=== PATIENT | male | born 1975 | race Caucasian/White ===

== ENCOUNTER 2018-05-10 21:06 | Emergency (ER) | payer SELFPAY ==
[~2018-05-10] VITALS: Ht 193 cm; Wt 185.0 kg
[~2018-05-10 21:06] MED LIST: ASPI-496 PO; ATEN50TA41 PO
[2018-05-10] MEDS ORDERED: ADENOSINE 6 MG/2 ML ONE ×2 (21:20→21:25)
[2018-05-10] MEDS ORDERED: METOPROLOL 1 MG/ML, 5ML ONE (21:25)
[2018-05-10] MEDS ORDERED: ADENOSINE 6 MG/2 ML IVPush ONE ×2 (21:30→22:00)
[2018-05-10] MEDS ORDERED: METOPROLOL 1 MG/ML, 5ML IVPush ONE ×2 (21:30→22:00)
[2018-05-10] MEDS ORDERED: SODIUM CHLORIDE FLUSH 10ML SYR IVF ONE (21:30)
[2018-05-10 21:41] LABS: BASOPHILS # (AUTO) 0.17 x10^3/uL (0-0.1); BASOPHILS % (AUTO) 1 % (0-1); EOSINOPHILS # (AUTO) 0.14 x10^3/uL (0-0.4); EOSINOPHILS % (AUTO) 1 % (1-7); LYMPHOCYTES # (AUTO) 4.25 x10^3/uL (1-3.4); LYMPHOCYTES % (AUTO) 33 % (22-44); MD NO; MEAN CORPUSCULAR HEMOGLOBIN 29.3 pg (27.5-34.5); MEAN CORPUSCULAR HGB CONC 34.2 g/dL (33.2-36.2); MEAN CORPUSCULAR VOLUME 85.7 fL (81-97); MEAN PLATELET VOLUME 10.4 fL (7.4-10.4); MONOCYTES # (AUTO) 0.89 x10^3/uL (0.2-0.8); MONOCYTES % (AUTO) 7 % (2-9); NEUTROPHILS # (AUTO) 7.39 x10^3/uL (1.8-6.8); NEUTROPHILS % (AUTO) 58 % (42-75); PLATELET COUNT 210 x10^3/uL (130-400); RED CELL DISTRIBUTION WIDTH 14.1 % (9.4-14.8)
[2018-05-10] MEDS ORDERED: PROPOFOL 10 MG/ML, 20ML ONE (21:49)
[2018-05-10 21:52] LABS: ALANINE AMINOTRANSFERASE 46 U/L (12-78); ALBUMIN 3.6 g/dL (3.4-5.0); ANION GAP 12 mmol/L (5-15); CALCIUM 8.8 mg/dL (8.5-10.1); CHLORIDE 106 mmol/L (98-107); CREATININE 1.24 mg/dL (0.7-1.3)
[2018-05-10 21:57] LABS: ALKALINE PHOSPHATASE 70 U/L (45-117); TOTAL PROTEIN 7.3 g/dL (6.4-8.2); TROPONIN I < 0.015 ng/mL (0.000-0.045)
[2018-05-10] MEDS ORDERED: PROPOFOL 10 MG/ML, 20ML IVPush ONE (22:00)
[2018-05-10] MEDS ORDERED: ATENOLOL 50 MG TABLET PO ONE (23:00)
[2018-05-10 23:26] VITALS: BP 125/89
== END 2018-05-10 23:39 | disposition home or self-care (01) ==
LOC: ED 22:50
DX: I47.1 Supraventricular tachycardia (principal); I48.91 Unspecified atrial fibrillation
CPT/HCPCS: 36415; 80053; 83735; 84484; 85025; 92960; 93005; 99291; J0153

== ENCOUNTER 2019-05-07 09:01 | Observation (INO) | payer OTHER ==
[~2019-05-07] VITALS: Ht 193 cm; Wt 205.0 kg
--- NOTE | 2019-05-07 09:19 | NUR ---
pt biba for afib with rvr, hx same. report received from EMS. pt states he felt onset of chest tightness and palpitations at 0830 this am. 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 EKG taken by this RN on arrival, reviewed by EDMD. pt attached to all monitors. pt is afib rate 110-130's on in store banker, no ectopy noted. pt a&o, resps even and unlabored, speaking in full sentences without difficulty. at bedside. med student at bedside at this time.
[2019-05-07] MEDS ORDERED: SODIUM CHLORIDE FLUSH 10ML SYR IVF ONE (09:30)
--- NOTE | 2019-05-07 09:36 | NUR ---
PT TO XRAY AT THIS TIME.
[2019-05-07 09:39] LABS: BASOPHILS # (AUTO) 0.08 x10^3/uL (0-0.1); BASOPHILS % (AUTO) 1 % (0-1); EOSINOPHILS # (AUTO) 0.18 x10^3/uL (0-0.4); EOSINOPHILS % (AUTO) 3 % (1-7); LYMPHOCYTES # (AUTO) 2.01 x10^3/uL (1-3.4); LYMPHOCYTES % (AUTO) 28 % (22-44); MD NO; MEAN CORPUSCULAR HEMOGLOBIN 29.6 pg (27.5-34.5); MEAN CORPUSCULAR HGB CONC 33.6 g/dL (33.2-36.2); MEAN CORPUSCULAR VOLUME 88.2 fL (81-97); MEAN PLATELET VOLUME 10.6 fL (7.4-10.4); MONOCYTES % (AUTO) 7 % (2-9); NEUTROPHILS # (AUTO) 4.42 x10^3/uL (1.8-6.8); NEUTROPHILS % (AUTO) 61 % (42-75); PLATELET COUNT 168 x10^3/uL (130-400); RED BLOOD COUNT 5.22 x10^6/uL (4.38-5.82); RED CELL DISTRIBUTION WIDTH 13.6 % (9.4-14.8)
[2019-05-07] MEDS ORDERED: PROPOFOL 10 MG/ML, 20ML ONE (09:41)
[2019-05-07 09:52] LABS: ALANINE AMINOTRANSFERASE 41 U/L (12-78); ALBUMIN 3.4 g/dL (3.4-5.0); CALCIUM 8.5 mg/dL (8.5-10.1); CREATININE 1.03 mg/dL (0.7-1.3)
[2019-05-07 09:56] LABS: ALKALINE PHOSPHATASE 70 U/L (45-117); ANION GAP 7 mmol/L (5-15); BILIRUBIN,TOTAL 0.8 mg/dL (0.2-1.0); CHLORIDE 111 mmol/L (98-107); TOTAL PROTEIN 7.1 g/dL (6.4-8.2); TROPONIN I < 0.015 ng/mL (0.000-0.045)
[2019-05-07 09:57] LABS: PROTHROMBIN TIME 10.5 Seconds (9.6-11.5)
[2019-05-07] MEDS ORDERED: PROPOFOL 10 MG/ML, 20ML IVPush ONE (10:00)
--- NOTE | 2019-05-07 10:31 | NUR ---
consent signed by pt and BESSY Avery for cardioversion with procedural sedation. pt a&o, resps even and unlabored, all monitors in place. pt remains in afib rate 110s-130s with no ectopy. pt shaved and prepped for cardioversion. crash cart at bedside. awaiting MD and cardioversion at this time.
--- NOTE | 2019-05-07 10:50 | NUR ---
cardioversion with procedural sedation completed by BESSY Avery, med student and this RN. procedure start time was 1040, end time was 10:47. pt received a total of 100mg propofol at 1040, and 50 mg propofol at 1046 from BESSY Avery. Pt was shocked twice, at 200J by . Pt remains in afib at rate 130's at this time with no ectopy. Pt tolerated procedure with no complications. Pt is drowsy, awakens to voice and is oriented x 4. resps even and unlabored. no n/v. all monitors remain in place, etco2 is 36 at this time. pt placed on oxygen at 2L via NC prior to procedure, spo2 98% on 2L at this time. pt updated with POC. see paper charting for intraprocedure sedation score and vital signs.
[2019-05-07] MEDS ORDERED: DILTIAZEM 5 MG/ML, 5ML IV ONE (11:00)
[2019-05-07] MEDS ORDERED: RIVAROXABAN 20 MG TABLET PO ONE (11:00)
[2019-05-07] MEDS ORDERED: DILTIAZEM 125 MG in SODIUM CHLORIDE 0.9% 100 ML IV SCH ×2 (11:00→15:30)
[2019-05-07] MEDS ORDERED: DILTIAZEM 5 MG/ML, 5ML ONE (11:07)
--- NOTE | 2019-05-07 11:21 | NUR ---
pt became hypotensive briefly s/p procedural sedation (bp 84/32). EDMD Avery notified. pt remained consious, a&ox4 and speaking in full sentences without difficulty. order received for 1L NS bolus which was infused. pt's bp promptly increased to 116/53 after NS bolus initiated and head of bed flattened. MD Avery was at bedside to reassess pt and update pt and with POC. MD arzola'ra RN to admin diltiazem 20 mg IV push. integrative medicine physician slowly over 10 min. pt medicated per emar and tolerated well. pt amenable to admission.
[2019-05-07] MEDS ORDERED: SODIUM CHLORIDE 0.9%, 500ML IVBOLUS ONE (11:30)
--- NOTE | 2019-05-07 11:30 | NUR ---
pt is fully awake, alert and oriented x 4. repss even and unlabored, tolerating room air with spo2 96%. dilt gtt req from pharmacy, pt is afib rate 70s-80s at this time. pt denies hx bleeding disorders however states he has the occaisional bleeding hemmorhoid, last 1 year ago, which did not require medical intervention. MD Avery notified, MD arzola'ra RN to admin xaralto.
[2019-05-07] MEDS ORDERED: RIVAROXABAN 20 MG TABLET ONE (11:38)
--- NOTE | 2019-05-07 11:59 | NUR ---
HOSPITALIST AT BEDSIDE FOR ASSESSMENT. REQUESTS HOLD OF DILTIAZEM DRIP AT THIS TIME, PLAN TO GIVE PO MEDS TO MANAGE. PT RECLINED IN BED RESPIRATIONS EVEN AND UNLABORED. AT BEDSIDE. SIDE RAILS UP, CALL LIGHT IN REACH.
[2019-05-07] MEDS ORDERED: GABAPENTIN 300 MG CAPSULE PO PRN (12:30)
[2019-05-07] MEDS ORDERED: NITROGLYCERIN 0.4 MG/SPRAY SL PRN (12:30)
[2019-05-07] MEDS ORDERED: METOPROLOL TARTRATE 50 MG TABLET PO SCH (12:30)
[2019-05-07] MEDS ORDERED: morphine SULFATE 10 MG/ML, 1ML IV PRN (12:30)
[2019-05-07] MEDS ORDERED: NITROGLYCERIN 0.4 MG BOTTLE (25 TABS) SL PRN (12:30)
[2019-05-07] MEDS ORDERED: ACETAMINOPHEN 325 MG TABLET PO PRN (12:30)
[2019-05-07] MEDS ORDERED: morphine SULFATE 10 MG/ML, 1ML IVPush PRN (12:30)
[2019-05-07] MEDS ORDERED: METOPROLOL TARTRATE 50 MG TABLET ONE (12:38)
--- NOTE | 2019-05-07 12:51 | NUR ---
PT A&O, RESPS EVEN AND UNLABORED, AFIB RATE 70'S ON APPAREL RENTAL CLERK. PT DENIES ANY NEEDS AT THIS TIME, AWAITING TRANSPORT UP TO CARDIAC TELE.
[2019-05-07 13:25] VITALS: BP 134/98
[2019-05-07] MEDS: DILTIAZEM CD 180 MG CAP.ER.24H PO SCH (16:03)
[2019-05-07] MEDS ORDERED: DILTIAZEM 125 MG in SODIUM CHLORIDE 0.9% 100 ML IV PRN (18:00)
[2019-05-07 20:19] LABS: TROPONIN I < 0.015 ng/mL (0.000-0.045)
[2019-05-07] MEDS: SODIUM CHLORIDE FLUSH 10ML SYR IVF SCH (20:31)
[2019-05-08 00:39] VITALS: BP 117/79
[2019-05-08 01:17] LABS: TROPONIN I < 0.015 ng/mL (0.000-0.045)
[2019-05-08] MEDS ORDERED: ASPIRIN 325 MG TABLET EC PO SCH (06:00)
[2019-05-08 06:20] LABS: CHOL/HDL RATIO 4.9; LDL/HDL RATIO 3.2 (0.5-3.0)
[2019-05-08 08:00] VITALS: BP 127/85
[2019-05-08] MEDS: SODIUM CHLORIDE FLUSH 10ML SYR IVF SCH (08:06)
[2019-05-08] MEDS: DILTIAZEM CD 180 MG CAP.ER.24H PO SCH (08:06)
[2019-05-08] MEDS ORDERED: ASPI-650 PO (12:42)
[2019-05-08] MEDS ORDERED: DILT30TA33 PO (12:42)
[2019-05-08] MEDS ORDERED: DILT180C53 PO (12:42)
== END 2019-05-08 14:40 | disposition home or self-care (01) ==
LOC: ED 11:30 → EDIP 11:35 → INTOOBSV 11:35 → 5SO 13:24 → DCLOUNGE 05-08 14:35
PROVIDERS: ADMIT Family Medicine; ATTEND Internal Medicine
DX: I48.20 Chronic atrial fibrillation, unspecified (principal); I48.0 Paroxysmal atrial fibrillation; D68.59 Other primary thrombophilia; I11.9 Hypertensive heart disease without heart failure; E03.9 Hypothyroidism, unspecified; E66.01 Morbid (severe) obesity due to excess calories; I48.92 Unspecified atrial flutter; Z79.82 Long term (current) use of aspirin; Z79.01 Long term (current) use of anticoagulants
CPT/HCPCS: 0399T; 36415; 71045; 80053; 80061; 83735; 83880; 84443; 84484; 85025; 85610; 93005; 93306; 96374; 96375; 99291; G0378; J2704; J7040

== ENCOUNTER 2019-07-16 19:15 | Emergency (ER) | payer SELFPAY ==
[~2019-07-16] VITALS: Ht 193 cm; Wt 105.0 kg
[~2019-07-16 19:15] MED LIST changes: +ASPI-650 PO; +DILT180C53 PO; +DILT30TA33 PO
--- NOTE | 2019-07-16 19:29 | NUR ---
[employer] pads replaced w/ pads compatible to our zolls upon admit to ed for safety.
--- NOTE | 2019-07-16 19:29 | NUR ---
Patient BIB [facility] post SVT conversion. Patient has a hx of SVT. Today he experienced sudden onset CP and palpitations. Per home pulse ox, patient's HR was 205. Upon EMS arrival, patient in SVT at rate of 220; no radia pulses; BP 70s systolic. Patient received 6mg/12mg Adenosine which did not convert rhythm. Patient received Ketamine and was cardioverted three times and successfully converted to sinus tach at rate of 130; BP improved to 140s systolic. Patient takes diltiazem at home which he is compliant with. He has experienced SVT in the past x3, the last time being in April where he was cardioverted. Currently patient is in NAD. Respirations even and unlabored.
[2019-07-16 19:55] LABS: BASOPHILS # (AUTO) 0.08 x10^3/uL (0-0.1); BASOPHILS % (AUTO) 1 % (0-1); EOSINOPHILS # (AUTO) 0.17 x10^3/uL (0-0.4); EOSINOPHILS % (AUTO) 2 % (1-7); LYMPHOCYTES # (AUTO) 1.96 x10^3/uL (1-3.4); LYMPHOCYTES % (AUTO) 26 % (22-44); MD NO; MEAN CORPUSCULAR HGB CONC 33.4 g/dL (33.2-36.2); MEAN CORPUSCULAR VOLUME 86.6 fL (81-97); MEAN PLATELET VOLUME 10.5 fL (7.4-10.4); MONOCYTES # (AUTO) 0.49 x10^3/uL (0.2-0.8); MONOCYTES % (AUTO) 6 % (2-9); NEUTROPHILS # (AUTO) 4.99 x10^3/uL (1.8-6.8); NEUTROPHILS % (AUTO) 65 % (42-75); PLATELET COUNT 179 x10^3/uL (130-400); RED BLOOD COUNT 5.46 x10^6/uL (4.38-5.82); RED CELL DISTRIBUTION WIDTH 13.4 % (9.4-14.8)
[2019-07-16] MEDS ORDERED: SODIUM CHLORIDE FLUSH 10ML SYR IVF ONE (20:00)
[2019-07-16 20:02] LABS: ALBUMIN 3.7 g/dL (3.4-5.0); ANION GAP 8 mmol/L (5-15); CALCIUM 8.7 mg/dL (8.5-10.1); CHLORIDE 110 mmol/L (98-107); CREATININE 1.05 mg/dL (0.7-1.3)
[2019-07-16 20:06] LABS: T4 (THYROXINE) 10.2 mcg/dL (4.5-12.1); TROPONIN I 0.016 ng/mL (0.000-0.045)
--- NOTE | 2019-07-16 20:14 | NUR ---
Pt sustaining hr 90-110's. aware. Denies any discomort or physical symptoms at this time. WCTM.
[2019-07-16 21:23] VITALS: BP 133/91
--- NOTE | 2019-07-16 21:36 | NUR ---
Discharge instructions given. All questions and concerns addressed. Patient ambulatory with a steady gait. Belongings with patient.
== END 2019-07-16 21:39 | disposition home or self-care (01) ==
LOC: ED 21:30
DX: I47.1 Supraventricular tachycardia (principal); I48.91 Unspecified atrial fibrillation
CPT/HCPCS: 36415; 71045; 80048; 82040; 83880; 84436; 84443; 84484; 85025; 93005; 99284

== ENCOUNTER 2019-08-11 13:05 | Emergency (ER) | payer SELFPAY ==
[~2019-08-11] VITALS: Ht 182.9 cm; Wt 193.8 kg
--- NOTE | 2019-08-11 13:26 | NUR ---
BREAK RN: PT REPORTS PALPITATIONS. EKG DONE. INDEPENDENT SALES REPRESENTATIVE ON. SINUS TACH NOTED. VS STABLE. CALL LIGHT IN PLACE. WILL CONTINUE TO MONITOR WHILE PRIMARY RN IS ON BREAK.
--- NOTE | 2019-08-11 13:39 | NUR ---
REPORT GIVEN TO LINDA PERALTA
[2019-08-11] MEDS ORDERED: ASPIRIN 81 MG TABLET CHEW ONE (13:47)
[2019-08-11 13:54] LABS: ALBUMIN 4.2 g/dL (3.4-5.0); ANION GAP 8 mmol/L (5-15); CALCIUM 9.6 mg/dL (8.5-10.1); CHLORIDE 111 mmol/L (98-107); CREATININE 0.99 mg/dL (0.7-1.3)
[2019-08-11] MEDS ORDERED: ASPIRIN 81 MG TABLET CHEW PO ONE (14:00)
--- NOTE | 2019-08-11 14:32 | NUR ---
PT RESTING IN BED. NO COMPLAINTS AT THIS TIME. A BEDSIDE.
[2019-08-11 15:05] LABS: BASOPHILS # (AUTO) 0.04 x10^3/uL (0-0.1); BASOPHILS % (AUTO) 1 % (0-1); EOSINOPHILS # (AUTO) 0.18 x10^3/uL (0-0.4); EOSINOPHILS % (AUTO) 3 % (1-7); LYMPHOCYTES # (AUTO) 2.09 x10^3/uL (1-3.4); LYMPHOCYTES % (AUTO) 29 % (22-44); MD SCAN; MEAN CORPUSCULAR HEMOGLOBIN 29.6 pg (27.5-34.5); MEAN CORPUSCULAR HGB CONC 34.3 g/dL (33.2-36.2); MEAN CORPUSCULAR VOLUME 86.4 fL (81-97); MEAN PLATELET VOLUME 11.9 fL (7.4-10.4); MONOCYTES # (AUTO) 0.53 x10^3/uL (0.2-0.8); MONOCYTES % (AUTO) 7 % (2-9); NEUTROPHILS # (AUTO) 4.41 x10^3/uL (1.8-6.8); NEUTROPHILS % (AUTO) 61 % (42-75); PLATELET COUNT 174 x10^3/uL (130-400); RED BLOOD COUNT 5.49 x10^6/uL (4.38-5.82); RED CELL DISTRIBUTION WIDTH 14.1 % (9.4-14.8)
[2019-08-11] MEDS ORDERED: POTASSIUM CHLORIDE 20 MEQ TAB.ER.PRT ONE (15:25)
[2019-08-11] MEDS ORDERED: POTASSIUM CHLORIDE 20 MEQ TAB.ER.PRT PO ONE (15:30)
[2019-08-11 15:31] VITALS: BP 120/75
--- NOTE | 2019-08-11 15:42 | NUR ---
DISCHARGE INSTRUCTIONS REVIEWED
== END 2019-08-11 15:44 | disposition home or self-care (01) ==
LOC: ED 14:40
DX: E87.6 Hypokalemia (principal); R00.0 Tachycardia, unspecified; R00.2 Palpitations; I48.91 Unspecified atrial fibrillation
CPT/HCPCS: 36415; 80048; 82040; 85025; 93005; 99284

== ENCOUNTER 2019-09-03 21:27 | Emergency (ER) | payer OTHER ==
[~2019-09-03] VITALS: Ht 182.9 cm; Wt 192.3 kg
[2019-09-03] MEDS ORDERED: PROPOFOL 10 MG/ML, 20ML ONE ×2 (21:46→21:55)
[2019-09-03] MEDS ORDERED: FENTANYL PF 100 MCG/2ML ONE (21:46)
--- NOTE | 2019-09-03 21:55 | NUR ---
pT IN AFIB RVR, TO TRAUMA ROOM, PLACED ON PADS. IV ACCESS ESTABLISHED. CONSENT ACQUIRED AND PT MEDICATED PER EMAR.
--- NOTE | 2019-09-03 21:56 | NUR ---
PT READY FOR SYNCHRONIZXED CARDIOVERSION
[2019-09-03] MEDS ORDERED: FENTANYL PF 100 MCG/2ML IVPush PRN (22:00)
[2019-09-03] MEDS ORDERED: SODIUM CHLORIDE 0.9% 1,000ML IVBOLUS ONE (22:00)
[2019-09-03] MEDS ORDERED: PROPOFOL 10 MG/ML, 20ML IVPush ONE (22:00)
--- NOTE | 2019-09-03 22:02 | NUR ---
PROCEDURE COMPLETED, PT RATE CONTROLLED AND PT AWAKE AND ALERT.
--- NOTE | 2019-09-03 22:05 | NUR ---
LATE ENTRY: PT ARRIVED TO ED AFTER INTERCOURSE AND STARTED TO HAVE CHEST PALPITATIONS AND FELT UNCOMFROTABLE. PT REPORTS MODERATE CHEST PAIN. PT DENIES TRAUMA. PT IS A/O X4 WITH GCS 15. PTS VITAL NORMAL NOW AND RETURNED TO BASELINE AND HAS NO SYMPTOMS.
[2019-09-03 22:21] LABS: ALBUMIN 4.4 g/dL (3.4-5.0); ANION GAP 11 mmol/L (5-15); CALCIUM 10.3 mg/dL (8.5-10.1); CHLORIDE 106 mmol/L (98-107); CREATININE 1.06 mg/dL (0.7-1.3)
--- NOTE | 2019-09-03 22:30 | NUR ---
Pt alert and no distress. VSS
[2019-09-03 22:31] LABS: MEAN CORPUSCULAR HEMOGLOBIN 28.9 pg (27.5-34.5); MEAN CORPUSCULAR HGB CONC 33.2 g/dL (33.2-36.2); MEAN CORPUSCULAR VOLUME 86.9 fL (81-97); MEAN PLATELET VOLUME 11.8 fL (7.4-10.4); PLATELET COUNT 236 x10^3/uL (130-400)
[2019-09-03 22:41] VITALS: BP 107/84
[2019-09-03 22:43] LABS: MD YES
[2019-09-03] MEDS ORDERED: POTASSIUM CHLORIDE 20 MEQ TAB.ER.PRT ONE (22:43)
[2019-09-03 22:44] LABS: EOS#(MANUAL) 0.37 x10^3/uL (0.0-0.4); EOS% (MANUAL) 3 % (1-7); LYMPH#(MANUAL) 3.35 x10^3/uL (1-3.4); LYMPHS% (MANUAL) 27 % (22-44); MONOS% (MANUAL) 4 % (2-9); REACTIVE LYMPHS # (MANUAL) 3.22 x10^3/uL (0-0); REACTIVE LYMPHS % (MANUAL) 26 % (0-0); SEG#(MANUAL) 4.96 x10^3/uL (1.8-6.8); SEGS% (MANUAL) 40 % (42-75)
[2019-09-03 22:49] LABS: <PLATELET ESTIMATE> ADEQUATE; <RBC MORPHOLOGY> NORMAL; GIANT PLATELETS 2+
[2019-09-03] MEDS ORDERED: POTASSIUM CHLORIDE 20 MEQ TAB.ER.PRT PO ONE (23:00)
--- NOTE | 2019-09-03 23:57 | NUR ---
Patient/Caregiver given discharge instructions and they have confirmed that they understand the instructions. Patient ambulatory with steady gait.
[2019-09-05] MEDS ORDERED: ASPI-496 PO (10:51)
[2019-09-05] MEDS ORDERED: DILT120T3 PO (10:51)
== END 2019-09-03 23:59 | disposition home or self-care (01) ==
LOC: ED 22:30
DX: I48.0 Paroxysmal atrial fibrillation (principal); E87.6 Hypokalemia
CPT/HCPCS: 36415; 80048; 82040; 85025; 92960; 93005; 99291; J7030

== ENCOUNTER 2019-09-05 10:56 | Outpatient (CLI) | payer OTHER ==
[~2019-09-05 10:56] MED LIST changes: +DILT120T3 PO
== END 2019-09-05 23:59 | disposition home or self-care (01) ==
LOC: STAR 10:56
PROVIDERS: ATTEND Internal Medicine Cardiovascular Disease
DX: Z02.9 Encounter for administrative examinations, unspecified (principal)
CPT/HCPCS: 71046

== ENCOUNTER 2019-09-19 06:21 | Day surgery (SDC) | payer OTHER ==
[~2019-09-19] VITALS: Ht 193 cm; Wt 193.2 kg
[2019-09-19] MEDS ORDERED: DILT120T3 PO (06:43)
[2019-09-19] MEDS ORDERED: HYDR-2995 PO (06:43)
[2019-09-19 06:51] VITALS: BP 150/91
[2019-09-19] MEDS ORDERED: SODIUM CHLORIDE 0.9% 1,000 ML IV SCH (06:53)
[2019-09-19] MEDS ORDERED: MIDAZOLAM 1 MG/ML, 2ML ONE (06:58)
[2019-09-19] MEDS ORDERED: FENTANYL PF 100 MCG/2ML ONE ×2 (06:59→11:08)
[2019-09-19] MEDS ORDERED: DEXAMETHASONE 4 MG/ML, 1ML ONE (07:02)
[2019-09-19] MEDS ORDERED: GLYCOPYRROLATE 0.2MG/1ML, 5ML ONE (07:02)
[2019-09-19] MEDS ORDERED: ROCURONIUM 10MG/ML,5ML ONE (07:02)
[2019-09-19] MEDS ORDERED: PROPOFOL 10 MG/ML, 20ML ONE (07:02)
[2019-09-19] MEDS ORDERED: ONDANSETRON 2MG/ML, 2ML ONE ×2 (07:02→11:48)
[2019-09-19] MEDS ORDERED: NEOSTIGMINE 1 MG/ML, 10ML ONE (07:02)
[2019-09-19] MEDS ORDERED: SUCCINYLCHOLINE 20 MG/ML, 10ML ONE (07:02)
[2019-09-19 07:28] LABS: ANION GAP 9 mmol/L (5-15); CALCIUM 9.1 mg/dL (8.5-10.1); CHLORIDE 109 mmol/L (98-107); CREATININE 1.11 mg/dL (0.7-1.3)
[2019-09-19] MEDS ORDERED: ACETAMINOPHEN 325 MG TABLET PO PRN (07:30)
[2019-09-19] MEDS ORDERED: OXYcodone 5 MG/5 ML ORAL.SOL UDC PO PRN (07:30)
[2019-09-19] MEDS ORDERED: FENTANYL PF 100 MCG/2ML IV PRN (07:30)
[2019-09-19] MEDS ORDERED: LABETALOL 5MG/ML, 20ML IV PRN (07:30)
[2019-09-19] MEDS ORDERED: ONDANSETRON 2MG/ML, 2ML IV PRN (07:30)
[2019-09-19] MEDS ORDERED: hydrALAzine 20 MG/ML, 1ML IV PRN (07:30)
[2019-09-19] MEDS ORDERED: HYDROmorphone 2 MG/ML, 1ML IVPush PRN (07:30)
[2019-09-19] MEDS ORDERED: MEPERIDINE/PF 25MG/ML,1ML IVPush PRN (07:30)
[2019-09-19] MEDS ORDERED: PROMETHAZINE 25 MG/ML, 1ML IV PRN (07:30)
[2019-09-19] MEDS ORDERED: EPHEDRINE 50 MG/ML, 1ML IVPush PRN (07:30)
[2019-09-19] MEDS ORDERED: KETOROLAC 30 MG/1 ML ONE (09:45)
[2019-09-19] MEDS ORDERED: LIDOCAINE 1%, 20ML ONE (09:45)
[2019-09-19] MEDS ORDERED: ISOPROTERENOL 0.2MG/ML, 5ML ONE (10:14)
[2019-09-19] MEDS ORDERED: ADENOSINE 6 MG/2 ML ONE ×5 (10:18→10:44)
[2019-09-19] MEDS ORDERED: hydrALAzine 20 MG/ML, 1ML ONE (11:39)
[2019-09-19] MEDS ORDERED: hydrOXyzine 10MG TABLET PO PRN (12:00)
[2019-09-19] MEDS ORDERED: DILTIAZEM 120 MG CAP.ER.12H PO SCH (21:00)
[2019-09-20] MEDS ORDERED: ASPIRIN 81 MG TABLET EC PO SCH (09:00)
== END 2019-09-19 15:47 | disposition home or self-care (01) ==
LOC: CACL 06:21
PROVIDERS: ATTEND Internal Medicine Cardiovascular Disease
DX: I47.1 Supraventricular tachycardia (principal); I48.92 Unspecified atrial flutter; I48.91 Unspecified atrial fibrillation; Z79.82 Long term (current) use of aspirin; Z79.899 Other long term (current) drug therapy
CPT/HCPCS: 36415; 80048; 93613; 93621; 93623; 93653; 93655; C1730; C1732; C1769; C1894; J0153; J0330; J0360; J1100; J1885; J2250; J2405; J2704; J2710; J3010; 71046

== ENCOUNTER 2019-12-04 12:29 | Emergency (ER) | payer OTHER ==
[~2019-12-04] VITALS: Ht 193 cm; Wt 191.0 kg
[~2019-12-04 12:29] MED LIST changes: +HYDR-2995 PO
--- NOTE | 2019-12-04 12:41 | NUR ---
triage note: EKG done in triage
[2019-12-04 12:54] VITALS: BP 167/98
--- NOTE | 2019-12-04 13:03 | NUR ---
PT CAME IN CO OF HEAT PALP. PT STATES HE HAS A HX OF SVT AND CONTROLS IT WITH CARDIZEM. PT IS FOUND TO HAVE A HR OF 110 AND IS CONNECTED TO MONITORING EQUIPMENT. EKG IS COMPLETE. ACCOMPANIED BY . PT IS RESTING IN [facility]. BLANKET PROVIDED.
[2019-12-04] MEDS ORDERED: LORazepam 1MG TABLET ONE (13:36)
[2019-12-04 13:47] LABS: BASOPHILS # (AUTO) 0.04 x10^3/uL (0-0.1); BASOPHILS % (AUTO) 0 % (0-1); EOSINOPHILS # (AUTO) 0.16 x10^3/uL (0-0.4); EOSINOPHILS % (AUTO) 2 % (1-7); LYMPHOCYTES # (AUTO) 1.54 x10^3/uL (1-3.4); LYMPHOCYTES % (AUTO) 17 % (22-44); MD NO; MEAN CORPUSCULAR HEMOGLOBIN 29.2 pg (27.5-34.5); MEAN CORPUSCULAR HGB CONC 33.7 g/dL (33.2-36.2); MEAN CORPUSCULAR VOLUME 86.5 fL (81-97); MEAN PLATELET VOLUME 10.6 fL (7.4-10.4); MONOCYTES # (AUTO) 0.41 x10^3/uL (0.2-0.8); MONOCYTES % (AUTO) 5 % (2-9); NEUTROPHILS # (AUTO) 6.84 x10^3/uL (1.8-6.8); NEUTROPHILS % (AUTO) 76 % (42-75); PLATELET COUNT 186 x10^3/uL (130-400); RED BLOOD COUNT 5.63 x10^6/uL (4.38-5.82); RED CELL DISTRIBUTION WIDTH 13.7 % (9.4-14.8)
[2019-12-04 13:57] LABS: ALBUMIN 3.9 g/dL (3.4-5.0); ANION GAP 4 mmol/L (5-15); CALCIUM 9.5 mg/dL (8.5-10.1); CHLORIDE 107 mmol/L (98-107); CREATININE 1.07 mg/dL (0.7-1.3)
[2019-12-04] MEDS ORDERED: LORazepam 1MG TABLET PO ONE (14:00)
[2019-12-04 14:01] LABS: TROPONIN I < 0.015 ng/mL (0.000-0.045)
== END 2019-12-04 15:02 | disposition home or self-care (01) ==
LOC: ED 14:34
DX: R00.2 Palpitations (principal); R55 Syncope and collapse; R42 Dizziness and giddiness; R07.89 Other chest pain; R94.31 Abnormal electrocardiogram [ECG] [EKG]; I48.91 Unspecified atrial fibrillation; Z87.891 Personal history of nicotine dependence
CPT/HCPCS: 36415; 71045; 80048; 82040; 84484; 85025; 93005; 99285